=== PATIENT | male | born 1965 | race Caucasian/White ===

== ENCOUNTER → 2021-03-23 00:43 | Outpatient (CLI) | payer BC, SELFPAY ==
[2021-03-23 17:04] LABS: SARS-CoV-2 RNA PCR Negative
== END ==
PROVIDERS: PCP Internal Medicine; Visit Provider Surgery
DX: Z01.812 Encounter for preprocedural laboratory examination (principal); Z20.822 Contact with and (suspected) exposure to COVID-19
CPT/HCPCS: C9803; U0003; U0005

== ENCOUNTER 2021-03-23 09:28 | Outpatient (CLI) | payer BC, SELFPAY ==
[2021-03-23 10:48] LABS: Alanine Aminotransferase 23 U/L (4-50); Albumin Level 4.7 g/dL (3.5-5.1); Alkaline Phosphatase 73 U/L (38-126); Anion Gap 10 mmol/L (8-16); Aspartate Amino Transferase 28 U/L (17-59); Bilirubin,Total 1.1 mg/dL (0.2-1.3); Blood Urea Nitrogen 23 mg/dL (9-20); Calcium 9.6 mg/dL (8.4-10.2); Carbon Dioxide 26 mmol/L (22-30); Chloride 104 mmol/L (98-107); Cholesterol 210 mg/dL (0-200); Estimated Glomerular Filt Rate > 60; Glucose 107 mg/dL (65-110); HDL Direct 40 mg/dL; Potassium 4.3 mmol/L (3.4-5.0); Sodium 140 mmol/L (137-145); Triglycerides 153 mg/dL (<150)
[2021-03-23 11:00] LABS: LDL Cholesterol Direct 133 mg/dL
[2021-03-23 11:19] LABS: Prostate Specific Antigen 1.2 ng/mL (< OR = 4.0)
== END 2021-03-23 09:29 | disposition home or self-care (01) ==
LOC: ANHLAB 09:30
PROVIDERS: PCP Internal Medicine; Visit Provider Internal Medicine
DX: E78.5 Hyperlipidemia, unspecified (principal); I10 Essential (primary) hypertension; Z12.5 Encounter for screening for malignant neoplasm of prostate
CPT/HCPCS: 36415; 80053; 80061; 84153; G0103

== ENCOUNTER 2021-03-27 00:19 | Day surgery (SDC) | payer BC, SELFPAY ==
[2021-03-19 15:48] VITALS: BMI 33.3
[2021-03-27] MEDS: ACETAMINOPHEN 500 MG TABLET 1000 MG PO (07:35)
[2021-03-27] MEDS: LACTATED RINGERS 1,000 ML 30 ML IV CONT ×2 (07:40→10:34)
[2021-03-27] MEDS: KETOROLAC 15 MG/ML VIAL (*BKC) IV PUSH (07:43)
--- NOTE | 2021-03-27 07:52 | P.PNAN_ITS ---
Anes - Initial Pre Proc Eval Procedure: Operation Date: 03/27/21 09:00 Proposed Procedures p Right Inguinal Hernia Repair - Yahir Cespedes MD Date/Time: 03/27/21 07:52 Surgeon: Yahir Cespedes MD Pre Op Diagnosis: Rt Ing Hernia Patient Data Age: 55 Gender: M Height: 1.88 m Weight: 117.9 kg Allergies Allergy/AdvReac Type Severity Reaction Status Date / Time No Known Allergies Allergy Verified 03/27/21 07:05 Home Medications Medication Instructions Recorded Confirmed Type ibuprofen 200 mg capsule 200 mg PO Q6H PRN 02/22/21 03/19/21 History lisinopril 10 1 tablet PO DAILY 02/22/21 03/19/21 History mg-hydrochlorothiazide 12.5 mg tablet tamsulosin 0.4 mg capsule 0.4 mg PO DAILY 02/22/21 03/19/21 History Patient hx anesthesia problems: none Family hx anesthesia problems: none Results Review: All pre-operative results and documents have been reviewed as part of the pre-operative evaluation. [facility] Past Medical History Medical History History of kidney stones Surgical History Surgical History H/O left inguinal hernia repair H/O nephrolithotomy with removal of calculi H/O right knee surgery Hx of appendectomy Family History Family History Father , age 81 Lung cancer Hypertension Grandparent Pancreatic cancer Carcinoma of colon Social History Social History Smoking packs per day: 1 Smoking cigarettes per day: 20.0 Years smoked: 25 Smoking pack-years: 25.00 Smoking status: Former smoker Tobacco type: cigarettes Smoking end date: 11/06/12 Alcohol intake: current Alcohol use details: A COUPLE/MONTH Substance use: never Substance use type: does not use Living arrangements: with family 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 Informed Consent: The patient's anesthetic plan and its attendant risks and benefits were discussed with the patient/family/POA. Questions were solicited and answers provided to the satisfaction of the patient/family/POA.
[2021-03-27 08:29] VITALS: BP 142/85; PULSE 75; TEMP 36.6; O2SAT 99
--- NOTE | 2021-03-27 08:31 | WPDHPUPDATE1 ---
History and Physical Update Update Date/Time: 03/27/21 08:31 History and Physical has been reviewed, including an updated exam of the patient. There are NO changes in the patient's condition. Risks, benefits, and alternatives have been discussed and questions answered. Patient agrees to proceed with procedure.
[2021-03-27] MEDS: ceFAZolin 2 GM/D5W 50 ML 2 GM/50 ML BAG IVPB (08:50)
[2021-03-27] MEDS: LIDO 1%/EPINEPHRINE 1:100,000 50 ML VIAL 20 ML INFILTRATE (09:26)
--- NOTE | 2021-03-27 09:30 | SUR.OPER ---
Xaracoll 100 mg per Implant Pouch x [address] Cespedes.
--- NOTE | 2021-03-27 10:28 | W.PM.PROC2 ---
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 He was seen in the office and is taken to surgery now for repair. Findings Patient had a large indirect inguinal hernia but also a smaller direct inguinal hernia that was very lateral in the direct space, just medial to the inferior epigastric vessels. Two plugs of 6 cm Parietex were required, 1 for each defect. Xaracoll bupivacaine impregnated collagen was placed for postoperative anesthetic effect Description of Procedure Patient was taken to surgery and placed in a supine position. The right groin and genitalia were prepped and draped. The proposed incision was marked on the skin. Local was infiltrated into the skin and the deeper subcutaneous tissues. Incision was made and deepened through the subcutaneous. Crossing veins were cauterized and divided. Dissection was carried down through Yosi's fascia until we encountered the external oblique aponeurosis. We continued dissection exposing the external oblique aponeurosis as well as the external ring. Additional local was infiltrated deep to the external oblique aponeurosis in the area of the inguinal canal and its contents. The external oblique was then opened laterally and this was extended medially through the external ring. The leaves of the aponeurosis were freed from the underlying inguinal canal contents. The ilioinguinal nerve was left attached to the cord and was uninjured throughout the surgery. The cord was mobilized medially around a [place] drain and then this was continued until the cord was fully mobilized back to the internal ring. I dissected anteromedially in the cord. A large indirect hernia sac was found. I dissected the hernia sac from the cord. There was some lipomatous tissue in the cord which was dissected and excised. It was discarded. We continued to dissect the hernia sac from the spermatic cord eventually dissecting it back to a high dissection. It was dunked into the retroperitoneum. It was now evident that there was also a direct inguinal hernia just medial to the inferior epigastric vessels. This was a smaller hernia. This was dissected free from the inguinal canal floor. I scored through the transversalis fascia circumferentially with the cautery. This was done just above the neck of the hernia. This hernia dunked into the retroperitoneum as had the indirect hernia. To 6 cm Parietex circles were chosen. Each was folded deform a plug. Each plug was placed in 1 of the hernia defects. With the plugs in place, I then sutured the edges of the plugs to the transversalis fascia. The defect associated with the direct hernia was partially closed with a 3-0 Vicryl suture as well. 3-0 Vicryl had been used to suture the plugs to the transversalis fascia. This portion of the repair seemed to be quite satisfactory. I infiltrated additional local into the inguinal canal floor. We then cut the patch to the appropriate size and placed over the inguinal canal floor such that the lateral leave passed beyond the cord. I then laid the cord and ilioinguinal nerve over the patch. I put several pieces of Xaracoll all over the patch. I then closed the external oblique aponeurosis. Some additional pieces of Xaracoll were then placed over the external oblique aponeurosis. We then closed Yosi's fascia with interrupted 3 0 Vicryl suture. Additional Xaracoll pieces were laid under the skin in the subcutaneous. The skin was loosely approximated with 4-0 Vicryl subcuticular interrupted skin suture. Finally the skin was closed with a running 4-0 Monocryl ski
[2021-03-27 10:34] VITALS: BP 94/57; PULSE 75; RESP 12; O2SAT 94
[2021-03-27 11:00] VITALS: BP 108/61; PULSE 66; RESP 16; O2SAT 99
[2021-03-27 11:20] VITALS: BP 94/55; PULSE 65; RESP 16
--- NOTE | 2021-03-27 11:23 | SUR.PHASEII ---
DRESSED. WAITING FOR A RIDE.
== END 2021-03-27 11:44 | disposition home or self-care (01) ==
PROVIDERS: PCP Internal Medicine; Visit Provider Surgery
PROC: (CPT 49505; principal; 2021-03-27 09:00)
DX: K40.90 Unilateral inguinal hernia, without obstruction or gangrene, not specified as recurrent (principal); Z87.891 Personal history of nicotine dependence; E66.9 Obesity, unspecified; Z68.32 Body mass index [BMI] 32.0-32.9, adult
CPT/HCPCS: 49505; A9270; C1781; J0690; J1100; J1170; J1885; J2250; J2405; J2704; J3010; J7120

== ENCOUNTER 2021-06-15 01:40 | Emergency (ER) | payer BC, SELFPAY ==
--- NOTE | ~2021-06-15 | CT_ITS ---
EXAMINATION: CT soft tissue neck w con DATE: 06/15/2021 03:18 INDICATION: Neck swelling after dental procedure. TECHNIQUE: Computed tomography (CT) of the neck was performed with 75 mL Omnipaque-350 intravenous co ntrast. Automated exposure control and iterative reconstruction technique were employed. The dose-ye gth product was 658.18 mGy-cm. COMPARISON: None FINDINGS: There is plaque in the proximal internal carotid arteries with 0% stenosis relative to norm al distal artery lumen diameters. There is an increased number of normal-sized left submandibular lym ph nodes, likely reactive. There is mild mucosal thickening in right frontal sinus. The mastoid air c ells are normal. Tooth 18 demonstrates periapical lucencies. Tooth 17 is absent. There is fat strandi ng in left submandibular region, consistent with inflammation. No abscess. There is severe cervical s pondylosis. IMPRESSION: 1. Periapical lucencies involving tooth 18. Left submandibular inflammation. No abscess. Reviewed, dictated and finalized at location A. [facility]
[2021-06-15 01:41] VITALS: BP 152/72; PULSE 77; RESP 18; TEMP 36.6; O2SAT 100
--- NOTE | 2021-06-15 02:36 | PC.NURSE ---
Called lab to see why blood results are not received when blood was sent approx 20minutes ago. Baylee stated she is receiving it now.
--- NOTE | 2021-06-15 02:37 | ED.GENADULT ---
HPI - General Adult General Chief complaint: Unspecified Stated complaint: facial swelling Time Seen by Provider: 06/15/21 01:55 History of Present Illness HPI narrative: Patient is a 55-year-old gentleman who presents the emergency department with chief complaint of neck swelling and facial swelling patient reports he had a root canal done this week and has been on oral amoxicillin the patient noticed that yesterday he started having swelling in his tongue and on the left side of his cheek and into his submandibular space. Patient states that it is painful it hurts to swallow patient states that he has not had something like this happen to him before the patient denies fever denies chills denies shortness of breath denies trismus. Related Data Home Medications Medication Instructions Recorded Confirmed ibuprofen 200 mg capsule 200 mg PO Q6H PRN 02/22/21 04/29/21 lisinopril 10 1 tablet PO DAILY 02/22/21 04/29/21 mg-hydrochlorothiazide 12.5 mg tablet tamsulosin 0.4 mg capsule 0.4 mg PO DAILY 02/22/21 04/29/21 amoxicillin 06/15/21 tadalafil mg 06/15/21 Allergies Allergy/AdvReac Type Severity Reaction Status Date / Time No Known Allergies Allergy Verified 06/15/21 01:49 Review of Systems Review of Systems: A 10 system review of systems was completed on the patient and is negative except for what is stated in the HPI. Nursing and ancillary documentation was reviewed. [facility] Past Medical History Medical History History of kidney stones Surgical History Surgical History H/O left inguinal hernia repair Right inguinal repair 03/27/21 H/O nephrolithotomy with removal of calculi H/O right knee surgery Hx of appendectomy Family History Family History Father , age 81 Lung cancer Hypertension Grandparent Pancreatic cancer Carcinoma of colon Social History Social History Smoking packs per day: 1 Smoking cigarettes per day: 20.0 Years smoked: 25 Smoking pack-years: 25.00 Smoking status: Former smoker Tobacco type: cigarettes Smoking end date: 11/06/12 Alcohol intake: current Alcohol use details: A COUPLE/MONTH Substance use: never Substance use type: does not use 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 HEAD: Normocephalic, atraumatic. EYES: PERRLA and EOMI. ENT: Nares clear, no rhinorrhea or epistaxis. Mucous membranes moist. NECK: There is swelling present on the submandibular side of the left side of the neck. CHEST: Clear to auscultation. No respiratory distress. HEART: Regular rate and rhythm. No murmur heard. Normal peripheral pulses. ABDOMEN: Soft, nontender, nondistended, normal active bowel sounds. EXTREMITIES: Normal range of motion. No edema. SKIN: Warm, dry, no rash. NEURO: No focal deficits. Alert and oriented x3. PSYCH: Normal mood and affect. Course Course Emergency Course: CT scan shows evidence of odontogenic disease from the left mandibular molar. Vital Signs Vital signs: Vital Signs Temperature 36.6 C 06/15/21 01:41 Pulse Rate 77 06/15/21 01:41 Respiratory Rate 18 06/15/21 01:41 Blood Pressure 152/72 H 06/15/21 01:41 Pulse Oximetry 100 06/15/21 01:41 Temperature 36.6 C 06/15/21 01:41 Pulse Rate 67 06/15/21 03:19 Respiratory Rate 17 06/15/21 03:19 Blood Pressure 128/73 06/15/21 03:19 Pulse Oximetry 98 06/15/21 03:19 Medical Decision Making Vital Signs Vital Signs: Vital Signs Temperature 36.6 C 06/15/21 01:41 Pulse Rate 77 06/15/21 01:41 Respiratory Rate 18 06/15/21 01:41 Blood Pressure 152/72 H
[2021-06-15 02:43] LABS: Basophils Percent Auto 0.4 % (0.2-1.2); Eosinophils Absolute Auto 0.1 K/mm3 (0-0.3); Eosinophils Percent Auto 1.6 % (0-4.4); Hematocrit 40.5 % (42.0-52.0); Hemoglobin 13.7 g/dL (14.0-18.0); Immature Granulocyte Absolute 0.03 K/mm3 (0.00-0.031); Immature Granulocyte Percent A 0.4 % (0-0.5); Lymphocytes Absolute Auto 1.49 K/mm3 (0.9-3.2); Lymphocytes Percent Auto 18.4 % (18.3-44.2); Mean Corpuscular HGB Conc 33.8 g/dl (32-36); Mean Corpuscular Hemoglobin 29.8 pg (26-34); Mean Platelet Volume 11.5 fl (7.4-10.4); Monocytes Absolute Auto 1.2 K/mm3 (0.1-0.6); Monocytes Percent Auto 14.3 % (2.6-8.5); Neutrophils Absolute Auto 5.3 K/mm3 (1.3-6.7); Neutrophils Percent Auto 64.9 % (45.5-73.1); Platelet Count Result 172 k/mm3 (150-375); Red Cell Distribution Width 13.2 % (11.5-14.5); White Blood Count 8.1 K/mm3 (4.5-10.0)
[2021-06-15 02:51] LABS: Alanine Aminotransferase 25 U/L (4-50); Albumin Level 4.3 g/dL (3.5-5.1); Alkaline Phosphatase 78 U/L (38-126); Anion Gap 5 mmol/L (8-16); Aspartate Amino Transferase 30 U/L (17-59); Bilirubin,Total 0.9 mg/dL (0.2-1.3); Blood Urea Nitrogen 20 mg/dL (9-20); Calcium 9.4 mg/dL (8.4-10.2); Carbon Dioxide 27 mmol/L (22-30); Chloride 104 mmol/L (98-107); Estimated CRCL calculation 105 ml/min; Estimated Glomerular Filt Rate > 60; Glucose 109 mg/dL (65-110); Potassium 3.7 mmol/L (3.4-5.0); Sodium 136 mmol/L (137-145)
[2021-06-15 02:52] LABS: Lactic Acid Reflex 0.7 mmol/L (0.7-2.1)
--- NOTE | 2021-06-15 03:10 | PC.NURSE ---
Patient in CT.
[2021-06-15 03:19] VITALS: BP 128/73; PULSE 67; RESP 17; O2SAT 98
[2021-06-15] MEDS: CLINDAMYCIN 600 MG/D5W 50 ML 600 MG/50 ML PIGGYBACK 100 MG IVPB (03:42)
== END 2021-06-15 04:10 | disposition home or self-care (01) ==
PROVIDERS: Emergency Provider Emergency Medicine; PCP Internal Medicine
DX: K12.2 Cellulitis and abscess of mouth (principal); Z87.442 Personal history of urinary calculi; Z87.891 Personal history of nicotine dependence; Z98.818 Other dental procedure status
CPT/HCPCS: 36415; 70491; 80053; 83605; 85025; 87040; 96365; 99284; Q9967

== ENCOUNTER 2021-11-26 14:53 | Outpatient (CLI) | payer BC, SELFPAY ==
--- NOTE | ~2021-11-26 | XR_ITS ---
EXAM: XR knee RT min 4V DATE: 11/26/2021 15:18 HISTORY: pain and swelling to right knee x 2 months, no injury . COMPARISON: None available. FINDINGS: Normal mineralization. No fracture or dislocation. No lytic or blastic lesion. Severe medi al joint space narrowing. Moderate tricompartmental osteophytosis. Small volume joint fluid. No erosi on or periosteal change. Soft tissues within normal limits. IMPRESSION: Tricompartmental right knee osteoarthritis, severe in the medial compartment. Reviewed, dictated and finalized at location K. IMPRESSION: Tricompartmental right knee osteoarthritis, severe in the medial co mpartment.
== END 2021-11-26 14:54 | disposition home or self-care (01) ==
PROVIDERS: PCP Internal Medicine; Visit Provider Internal Medicine
DX: M25.561 Pain in right knee (principal); M17.11 Unilateral primary osteoarthritis, right knee
CPT/HCPCS: 73564

== ENCOUNTER 2022-03-31 14:31 | Outpatient (CLI) | payer BC, SELFPAY ==
--- NOTE | 2022-03-31 14:58 | ECG_ITS ---
Measurements Intervals [place] Rate: 82 P: 36 WV: 160 QRS: -6 QRSD: 102 T: 10 QT: 365 QTc: 428 Interpretive Statements SINUS RHYTHM NORMAL ECG NO PREVIOUS ECG AVAILABLE FOR COMPARISON Electronically Signed On 03-31-2022 16:28:17 CDT by Low Sen M.D.
[2022-03-31 15:01] LABS: Hematocrit 43.3 % (42.0-52.0); Hemoglobin 14.7 g/dL (14.0-18.0)
[2022-03-31 15:12] LABS: Albumin Level 4.7 g/dL (3.5-5.1); Estimated Glomerular Filt Rate 57; Glucose 100 mg/dL (65-110)
[2022-03-31 15:27] LABS: Hemoglobin A1C 5.6 % (<5.7)
[2022-03-31 16:06] LABS: Urine Cotinine NEGATIVE
== END 2022-03-31 14:32 | disposition home or self-care (01) ==
LOC: ANHLAB 14:33
PROVIDERS: PCP Internal Medicine; Visit Provider Orthopaedic Surgery
DX: I10 Essential (primary) hypertension (principal); Z87.442 Personal history of urinary calculi; E78.5 Hyperlipidemia, unspecified; Z92.29 Personal history of other drug therapy; M17.11 Unilateral primary osteoarthritis, right knee; Z92.89 Personal history of other medical treatment
CPT/HCPCS: 80307; 82040; 82565; 82947; 83036; 85014; 85018; 93005

== ENCOUNTER 2022-05-28 11:31 | Outpatient (CLI) | payer BC, SELFPAY ==
[2022-05-28 13:38] LABS: Basophils Absolute Auto 0.1 K/mm3 (0.0-0.1); Basophils Percent Auto 0.7 % (0.2-1.2); Eosinophils Absolute Auto 0.1 K/mm3 (0-0.3); Eosinophils Percent Auto 0.7 % (0-4.4); Hematocrit 47.7 % (42.0-52.0); Immature Granulocyte Absolute 0.05 K/mm3 (0.00-0.031); Immature Granulocyte Percent A 0.6 % (0-0.5); Lymphocytes Absolute Auto 1.61 K/mm3 (0.9-3.2); Lymphocytes Percent Auto 18.5 % (18.3-44.2); Mean Corpuscular HGB Conc 33.5 g/dl (32-36); Mean Corpuscular Hemoglobin 29.7 pg (26-34); Mean Corpuscular Volume 88.5 fl (80-100); Mean Platelet Volume 11.3 fl (7.4-10.4); Monocytes Absolute Auto 0.9 K/mm3 (0.1-0.6); Monocytes Percent Auto 10.8 % (2.6-8.5); Neutrophils Percent Auto 68.7 % (45.5-73.1); Platelet Count Result 227 k/mm3 (150-375); Red Blood Count 5.39 M/mm3 (4.6-6.20); Red Cell Distribution Width 12.6 % (11.5-14.5); White Blood Count 8.7 K/mm3 (4.5-10.0)
[2022-05-28 13:50] LABS: Albumin Level 4.9 g/dL (3.5-5.1)
[2022-05-28 13:55] LABS: Urine Cotinine NEGATIVE
[2022-05-28 21:30] LABS: Anion Gap 6 mmol/L (8-16); Blood Urea Nitrogen 28 mg/dL (9-20); Calcium 9.6 mg/dL (8.4-10.2); Carbon Dioxide 28 mmol/L (22-30); Chloride 104 mmol/L (98-107); Estimated Glomerular Filt Rate > 60; Glucose 89 mg/dL (65-110); Potassium 3.9 mmol/L (3.4-5.0); Sodium 138 mmol/L (137-145)
== END 2022-05-28 11:32 | disposition home or self-care (01) ==
PROVIDERS: Anesthesiology; PCP Internal Medicine; Visit Provider Orthopaedic Surgery
DX: M17.11 Unilateral primary osteoarthritis, right knee (principal); Z79.899 Other long term (current) drug therapy
CPT/HCPCS: 36415; 80048; 80307; 82040; 85025; 87081

== ENCOUNTER 2022-06-19 00:04 | Day surgery (SDC) | payer BC, SELFPAY ==
--- NOTE | 2022-05-28 12:05 | PC.NURSE ---
PRE-OP INSTRUCTIONS, PLEASE READ CAREFULLY Report to the Outpatient Waiting Room, entrance under the green pavilion located off [facility], at time _0600_ on date _06/19/22_. Planned Procedure Time: _0730_. PACK A SMALL OVERNIGHT BAG AND LEAVE IN THE CAR ALONG WITH YOUR WALKER Time changes happen often and if your time is changed the preop area will call you the afternoon before. - You and your visitor will be asked to self-screen and do not enter if you have any COVID symptoms. - Only one visitor is requested with a max of two and NO children visitors are allowed at this time. - The patient visitor may be requested to leave or wait in car when not with patient due to distancing restrictions. - A mask is required within the hospital. -VISITING HOURS 8AM-8PM Patients may have clear liquids (water, carbonated beverages, clear teas, apple juice) until 3 hours prior to surgery (0430 AM) with a maximum of 20 ounces. - No food from midnight until time of surgery Take the following medications with a SIP of water the morning of surgery: _TYLENOL IF NEEDED_ Medications to discontinue per DR. CARR -_IBUPROFEN, ALEVE 7 DAYS PRIOR TO SURGERY, Date to take last dose 06/11/22_ Please no make-up, nail kiswahili, hairspray, perfume, deodorant, or body powder the day of surgery. No jewelry (including any body piercings) or valuables the day of surgery, leave them at home. Please take a shower or bath the night before, or the morning of, surgery with an antibacterial soap. Wear comfortable, loose fitting clothing. - Jewelry must be removed prior to entering the operating room. Rings and piercings that are not removed may be cut off. - The hospital will not accept responsibility for valuables. - Please leave all valuables, including medications, at home the day of surgery. If you are going home after surgery, a licensed mixer driver must drive you home. - NO public transportation without another adult if you receive anesthesia. - We recommend that an adult stay with you for 24 hours following discharge. - We also recommend that you do not drive, make important decision, drink alcoholic beverages, or take any drugs that were not prescribed by your health care provider for at least 24 hours after your discharge time. Follow any additional instructions given to you from your surgeon. If you or anyone in your household have experienced Covid symptoms in the past week, please notify your surgeon or the nurse liaison at the phone number below for possible testing. Instructions given to __PATIENT__and asked if any additional questions and then verbalized understanding. Patient advised to call surgeon office or pre surgery nurse liaison [phone] if any additional questions.
[2022-05-28 12:22] VITALS: BP 124/82; PULSE 72; RESP 20; TEMP 36.5; O2SAT 99; BMI 33.5
--- NOTE | 2022-06-18 09:32 | WPDANESEPPF ---
Anes - Initial Pre Proc Eval Procedure: Operation Date: 06/19/22 07:30 Proposed Procedures p Right Total Knee Arthroplasty - Db Sesay MD Date/Time: 06/18/22 09:32 Surgeon: Db Sesay MD Pre Op Diagnosis: primary OA Right knee Patient Data Age: 56 Gender: M Height: 1.88 m Weight: 118.7 kg Last Vital Signs Temp 36.5 C 05/28/22 12: Pulse 72 05/28/22 12:22 Resp 20 05/28/22 12:22 BP 124/82 05/28/22 12:22 Pulse Ox 99 05/28/22 12:22 O2 Del Method Room Air 05/28/22 12:22 Allergies Allergy/AdvReac Type Severity Reaction Status Date / Time No Known Allergies Allergy Verified 06/19/22 06:10 Home Medications Medication Instructions Recorded Confirmed Type lisinopril 10 1 tablet PO DAILY 02/22/21 06/19/22 History mg-hydrochlorothiazide 12.5 mg tablet acetaminophen 325 mg capsule 650 mg PO Q6H PRN Pain 02/27/22 06/19/22 History (Tylenol) ibuprofen 200 mg capsule 200 mg PO Q6H PRN Pain 02/27/22 06/19/22 History naproxen sodium 220 mg tablet 220 mg PO BID PRN Pain 05/28/22 06/19/22 History (Aleve) tadalafil 10 mg tablet 10 mg PRN PRN Erectile Dysfunction 05/28/22 06/19/22 History Patient hx anesthesia problems: none Family hx anesthesia problems: none Results Review: All pre-operative results and documents have been reviewed as part of the pre-operative evaluation. [facility] Past Medical History Medical History (Updated 06/18/22 @ 09:40 by Fortunato Armenta DO) Erectile dysfunction History of kidney stones History of stress test (~2014) HTN (hypertension) Hyperlipemia Personal history of other drug therapy Surgical History Surgical History (Updated 03/26/22 @ 14:54 by Rachel Yen MA) H/O left inguinal hernia repair Right inguinal repair 03/27/21 H/O nephrolithotomy with removal of calculi H/O right knee surgery x2 ppm Hx of appendectomy Family History Family History Father , age 81 Lung cancer Hypertension Grandparent Pancreatic cancer Carcinoma of colon Social History Social History (Updated 06/11/22 @ 15:26 by Sharon Bhandari) Smoking packs per day: 1 Smoking cigarettes per day: 20.0 Years smoked: 25 Smoking pack-years: 25.00 Smoking status: Former smoker Tobacco type: cigarettes Second hand tobacco smoke exposure: No Smoking end date: 11/06/12 Additional smoking assessment comments: PT DENIES ALL FORMS OF TOBACCO USE Alcohol intake: current Alcohol use details: RARELY 1/MONTH Substance use: never Substance use type: does not use Lack of Transportation: No Lack of Food: Never True Current Housing: I Have Housing Concerned About Future Housing: No Difficulty Paying Gas/Electric Bills: No Difficulty Paying for Meds: No Currently Unemployed: No Education: Associate Degree Difficulty w/ Childcare or Family Care: No Living arrangements: with family 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 Informed Consent: The patient's anesthetic plan and its attendant risks and benefits were discussed with the patient/family/POA. Questions were solicited and answers provided to the satisfaction of the patient/family/POA.
[2022-06-19] VITALS (10 sets, daily range): BP systolic 106–131; BP diastolic 60–86; PULSE 66–78; RESP 11–18; TEMP 36.3–36.9; O2SAT 96–100
--- NOTE | ~2022-06-19 | XR_ITS ---
EXAMINATION: XR knee RT 2V DATE: 06/19/2022 09:56 INDICATION: Postoperative evaluation following right total knee arthroplasty. TECHNIQUE: Anteroposterior and lateral views of the right knee were obtained. COMPARISON: 06/11/2022 FINDINGS: Right total knee arthroplasty with patellar resurfacing appears well seated and in near anatomic alig nment. No fractures identified. Expected postoperative subcutaneous and intra-articular gas. IMPRESSION: 1. Right total knee arthroplasty, negative for postoperative purposes. Reviewed, dictated and finalized at location A. REMENT PLAN COUNSELOR
[2022-06-19] MEDS: LACTATED RINGERS 1,000 ML 30 ML IV CONT ×2 (06:30→09:45)
--- NOTE | 2022-06-19 06:32 | WPDANESPNB ---
Anes - Peripheral Nerve Block Date/Time: 06/19/22 06:32 I have discussed with the patient/family/POA the placement of a peripheral nerve block for post-operative pain management, including associated risks, benefits, complications, and side effects. Alternative methods of post-operative analgesia were detailed. Questions were solicited and answers provided to the satisfaction of the patient/family/POA. Time-Out: A pre-procedural Time-Out was completed immediately before starting the procedure and confirmed: Patient Identification, Site, Procedure, Patient Position and the Availability of Requisite Equipment. Clinical Indications: Acute post-operative pain management requested by the operative surgeon. Nerve Block Insertion Note Anes-nerve block: adductor canal right Patient position: supine Skin prep: chlorhexidine Needle: 22 gauge, stimulating, insulated echogenic needle. Needle length: 80 mm Technique: ultrasound Injectate: bupivacaine 0.5% with epi 5 mcg/ml (30cc - no epi) Observations: tolerated well Complications: none Procedure start time:: 714 Procedure end time:: 718
[2022-06-19] MEDS: TRANEXAMIC ACID 1,000MG/ISO100 1,000 MG/100 ML BAG 200 MG IVPB (06:58)
--- NOTE | 2022-06-19 07:12 | WPDHPUPDATE1 ---
History and Physical Update Update Date/Time: 06/19/22 07:12 History and Physical has been reviewed, including an updated exam of the patient. There are NO changes in the patient's condition. Risks, benefits, and alternatives have been discussed and questions answered. Patient agrees to proceed with procedure.
[2022-06-19] MEDS: ceFAZolin 2 GM/D5W 50 ML 2 GM/50 ML BAG IVPB (07:29)
[2022-06-19] MEDS: GENTAMICIN BONE CEMENT REFOBACIN 1 EACH TOPICAL (08:13)
[2022-06-19] MEDS: TRANEXAMIC ACID 1,000 MG/10 ML AMPUL 1000 MG TOPICAL (09:18)
--- NOTE | 2022-06-19 09:56 | W.PM.PROC2 ---
Procedure Note - Detailed Date of Procedure 06/19/22 Pre-op Diagnosis primary OA Right knee Post-op Diagnosis Same Procedure Performed Total knee arthroplasty, right knee Surgeon Db Sesay MD Mobile Security Specialist Taniya Khan PA-C Anesthesia General and Regional (subsartorial block) Findings Severe varus arthritis. Mild tricompartmental changes. Mild medial release required. Minimal posterior osteophyte. 5 degree valgus femoral cut. 3 degree external rotation. 8 mm distal femur. Slight PCL released from the tibia. Very good bone quality. Description of Procedure The patient was brought to the operating room. A general anesthetic was administered. The leg was prepped and draped in the usual sterile fashion. The limb was elevated and the tourniquet inflated to 300 mmHg. A longitudinal incision was created along the medial border of the patella and patellar tendon, and a trivector approach to the knee was performed. A mild medial release was taken. The knee was then flexed. The osteophytes were carefully removed. The intramedullary guide was placed in the femoral canal. The distal femoral resection was then taken with the oscillating saw. The collateral ligaments were carefully protected. The tibia was carefully exposed. The jig was applied, and the proximal tibia was resected according to preoperative plan. The knee was balanced in extension. Appropriate releases were taken where needed. The anterior cruciate ligament and meniscal remnants were removed. The posterior cruciate ligament was preserved. The patella was measured. Patellar resection was carried out with the oscillating saw. The lug holes drilled. The femur was sized and rotation assessed using a combination of gap balancing, posterior referencing, and the AP axis. The 4 in 1 cutting block was used to finish the femoral cuts after equal gaps were assured. The osteophytes were carefully removed from the back of the knee. The knee was copiously irrigated with antibiotic solution periodically throughout the procedure. The meniscal remnants were removed. The spacer block was used to confirm equal flexion and extension gaps. No further releases were needed. The tibia was sized and broached. The bony surfaces were prepared for cementing with pulsatile lavage. The real tibia was cemented into position. The femur was press-fit. The patella was press-fit. Excess cement was carefully removed. Patellar tracking was carefully assessed. Dilute sterile Betadine soak performed for three minutes. Copious irrigation then performed. The wound was closed with #1 Vicryl suture, #2, 2-0, and 3-0 barbed suture, followed by Steri-Strips. A sterile bulky dressing was applied. Meticulous hemostasis was maintained throughout the procedure, and the bipolar cautery device was used. The pain relieving mixture was injected into the periarticular tissues during the procedure. There were no complications. The patient was extubated and brought to the recovery room in stable condition after the application of sterile dressing with Madhu bandage. Implants Agent Partnerathlon knee system, low profile cemented tibia size 7, press-fit cruciate retaining femoral component size 7 ,and an 9 mm cruciate [retaining] X3 cross-linked polyethylene insert. 38mm asymmetric metal backed tritanium patella component. Estimated Blood Loss 100 Drains No Pathology None sent Complications No immediate complications Condition Stable Disposition PACU [facility] Billing Surgery - Charge Forward: Surgery Billing
[2022-06-19] MEDS: oxyCODONE HCL (*CRX) 5 MG TAB IR PO (11:24)
== END 2022-06-19 12:50 | disposition home or self-care (01) ==
PROVIDERS: PCP Internal Medicine; Visit Provider Orthopaedic Surgery
PROC: (CPT 27447; principal; 2022-06-19 07:30)
DX: M17.11 Unilateral primary osteoarthritis, right knee (principal); G89.18 Other acute postprocedural pain; I10 Essential (primary) hypertension; E78.5 Hyperlipidemia, unspecified; Z87.891 Personal history of nicotine dependence; E66.9 Obesity, unspecified; Z68.33 Body mass index [BMI] 33.0-33.9, adult
CPT/HCPCS: 27447; 64447; 36415; 73560; 86850; 86900; 86901; 97110; 97161; 97165; 97535; A9270; C1713; C1776; J0171; J0690; J1100; J1885; J2250; J2270; J2405; J2704; J2795; J3010; J7120

== ENCOUNTER 2023-06-19 07:37 | Outpatient (CLI) | payer BC, SELFPAY ==
--- NOTE | ~2023-06-19 | XR_ITS ---
CORRECTED REPORT corrected exam title JMG 06/19/23 This report was recreated on 06/19/23. Original report was RNET MARKETING EXECUTIVE XR knee RT 3V DATE: 06/19/2023 07:48 INDICATION: Knee replacement surgery one year ago TECHNIQUE: 3 views COMPARISON: 11/12/2022 right knee FINDINGS: Status post right total knee arthroplasty. There is a small suprapatellar knee joint effusion. No fracture or dislocation, periosteal reaction or bone destruction. IMPRESSION: Small knee joint effusion Status post right total knee arthroplasty Reviewed, dictated and finalized at Location A. Reviewed, dictated and finalized at location B. RNET MARKETING EXECUTIVE MTDD
== END 2023-06-19 07:38 | disposition home or self-care (01) ==
PROVIDERS: PCP Internal Medicine; Visit Provider Orthopaedic Surgery
DX: Z47.1 Aftercare following joint replacement surgery (principal); M25.461 Effusion, right knee
CPT/HCPCS: 73562

== ENCOUNTER 2023-07-13 00:27 | Day surgery (SDC) | payer BC, SELFPAY ==
[2023-06-16 11:50] VITALS: BMI 34.0
--- NOTE | 2023-07-10 08:32 | SUR.PREOP ---
Patient called regarding upcoming procedure. Reviewed preop instructions, appointment times, and procedure prep.
--- NOTE | 2023-07-10 14:50 | PM.HPGS ---
History of Present Illness History of Present Illness Consent: Risks, benefits, and alternatives have been discussed and questions answered. Patient agrees to proceed with procedure. Chief complaint: family hx colon ca Narrative: Romero Hernandez is a 58 year old male Referred for colon cancer screening. Although his maternal grandmother had colon cancer, he is at average risk. Review of Systems Review of Systems: All systems reviewed & are unremarkable except as noted in HPI and below PMFSH Past Medical History Medical History Erectile dysfunction History of kidney stones History of stress test (~2014) HTN (hypertension) Hyperlipemia Personal history of other drug therapy Surgical History Surgical History H/O left inguinal hernia repair Right inguinal repair 03/27/21 H/O nephrolithotomy with removal of calculi H/O right knee surgery x2 pmm History of total right knee replacement (~06/19/22) Hx of appendectomy Family History Family History Father , age 81 Lung cancer Hypertension Grandparent Pancreatic cancer Carcinoma of colon Social History Social History Smoking packs per day: 1 Smoking cigarettes per day: 20.0 Years smoked: 20 Smoking pack-years: 20.00 Smoking status: Former smoker Tobacco type: cigarettes Second hand tobacco smoke exposure: No Smoking end date: 11/06/12 Additional smoking assessment comments: PT DENIES ALL FORMS OF TOBACCO USE Alcohol intake: never Alcohol use details: DRINKS VERY RARELY Substance use: never Substance use type: does not use Do You Feel Safe in your Home?: Yes Lack of Transportation: No Lack of Food: Never True Current Housing: I Have Housing Concerned About Future Housing: No Difficulty Paying Gas/Electric Bills: No Difficulty Paying for Meds: No Currently Unemployed: No Education: Associate Degree Difficulty w/ Childcare or Family Care: No Living arrangements: with family Occupation/Education: occupation 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 Spiritual care concerns: No Meds Home Medications and Allergies Home Medications Medication Instructions Recorded Confirmed Type lisinopril 10 1 tablet PO DAILY 02/22/21 06/19/23 History mg-hydrochlorothiazide 12.5 mg tablet tadalafil 10 mg tablet 10 mg PRN PRN Erectile Dysfunction 05/28/22 06/19/23 History Allergies Allergy/AdvReac Type Severity Reaction Status Date / Time No Known Allergies Allergy Verified 07/13/23 09:56 Exam Const: General: alert Orientation/consciousness: patient oriented x3 Resp: Auscultation: clear to auscultation bilaterally Cardio: Rhythm: regular rhythm GI: GI Palp: Yes Soft to palpation and No Tenderness to palpation present (GI) Neuro: General: patient oriented x3 Assessment and Plan Assessment and plan (1) Colon cancer screening: Code(s): Z12.11 - Encounter for screening for malignant neoplasm of colon Status: Acute Assessment and Plan: Colonoscopy with possible biopsy or polypectomy or cautery or injection of substances.
[2023-07-13 10:00] VITALS: BP 137/90; PULSE 76; RESP 18; TEMP 36.6; O2SAT 97
[2023-07-13] MEDS: LACTATED RINGERS 1,000 ML 150 ML IV CONT (10:08)
--- NOTE | 2023-07-13 10:10 | WPDANESEPPF ---
Anes - Initial Pre Proc Eval Procedure: Operation Date: 07/13/23 11:00 Proposed Procedures p Colonoscopy - Paul Morelos MD Date/Time: 07/13/23 10:10 Surgeon: Paul Morelos MD Pre Op Diagnosis: family hx colon ca Patient Data Age: 58 Gender: M Height: 1.88 m Weight: 120.5 kg Last Vital Signs Temp 97.9 F 07/13/23 10:00 Pulse 76 07/13/23 10:00 Resp 18 07/13/23 10:00 BP 137/90 07/13/23 10:00 Pulse Ox 97 07/13/23 10:00 O2 Del Method Room Air 07/13/23 10:00 Allergies Allergy/AdvReac Type Severity Reaction Status Date / Time No Known Allergies Allergy Verified 07/13/23 09:56 Home Medications Medication Instructions Recorded Confirmed Type lisinopril 10 1 tablet PO DAILY 02/22/21 06/19/23 History mg-hydrochlorothiazide 12.5 mg tablet tadalafil 10 mg tablet 10 mg PRN PRN Erectile Dysfunction 05/28/22 06/19/23 History Patient hx anesthesia problems: none Family hx anesthesia problems: none Results Review: All pre-operative results and documents have been reviewed as part of the pre-operative evaluation. [facility] Past Medical History Medical History Erectile dysfunction History of kidney stones History of stress test (~2014) HTN (hypertension) Hyperlipemia Personal history of other drug therapy Surgical History Surgical History H/O left inguinal hernia repair Right inguinal repair 03/27/21 H/O nephrolithotomy with removal of calculi H/O right knee surgery x2 pmm History of total right knee replacement (~06/19/22) Hx of appendectomy Family History Family History Father , age 81 Lung cancer Hypertension Grandparent Pancreatic cancer Carcinoma of colon Social History Social History Smoking packs per day: 1 Smoking cigarettes per day: 20.0 Years smoked: 20 Smoking pack-years: 20.00 Smoking status: Former smoker Tobacco type: cigarettes Second hand tobacco smoke exposure: No Smoking end date: 11/06/12 Additional smoking assessment comments: PT DENIES ALL FORMS OF TOBACCO USE Alcohol intake: never Alcohol use details: DRINKS VERY RARELY Substance use: never Substance use type: does not use Do You Feel Safe in your Home?: Yes Lack of Transportation: No Lack of Food: Never True Current Housing: I Have Housing Concerned About Future Housing: No Difficulty Paying Gas/Electric Bills: No Difficulty Paying for Meds: No Currently Unemployed: No Education: Associate Degree Difficulty w/ Childcare or Family Care: No Living arrangements: with family Occupation/Education: occupation 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 Informed Consent: The patient's anesthetic plan and its attendant risks and benefits were discussed with the patient/family/POA. Questions were solicited and answers provided to the satisfaction of the patient/family/POA.
[2023-07-13] MEDS: SIMETHICONE ORAL SUSPENSION 20 MG/0.3 ML 30 ML BOTTLE 0.6 ML IRRIGATION (10:45)
[2023-07-13 10:59] VITALS: BP 112/75; PULSE 78; RESP 17; O2SAT 97
[2023-07-13 11:07] VITALS: BP 114/80; PULSE 69; RESP 28; O2SAT 97
[2023-07-13 11:10] VITALS: BP 122/80; PULSE 72; RESP 28; O2SAT 98
[2023-07-13 11:20] VITALS: BP 122/80; PULSE 73; RESP 24; O2SAT 96
== END 2023-07-13 11:24 | disposition home or self-care (01) ==
PROVIDERS: PCP Internal Medicine; Visit Provider Internal Medicine Gastroenterology
PROC: 0DJD8ZZ Inspection of Lower Intestinal Tract, Via Natural or Artificial Opening Endoscopic (ICD-10-PCS; CPT 45378; principal; 2023-07-13 11:00)
DX: Z12.11 Encounter for screening for malignant neoplasm of colon (principal); K64.8 Other hemorrhoids; K57.30 Diverticulosis of large intestine without perforation or abscess without bleeding; I10 Essential (primary) hypertension; E78.5 Hyperlipidemia, unspecified; N52.9 Male erectile dysfunction, unspecified; E66.9 Obesity, unspecified; Z68.34 Body mass index [BMI] 34.0-34.9, adult; Z98.890 Other specified postprocedural states; Z87.891 Personal history of nicotine dependence; Z80.0 Family history of malignant neoplasm of digestive organs; Z80.1 Family history of malignant neoplasm of trachea, bronchus and lung
CPT/HCPCS: 45378; J7120

== ENCOUNTER 2023-07-16 10:22 | Emergency (ER) | payer BC, SELFPAY ==
[2023-07-16 10:37] VITALS: BP 136/91; PULSE 81; RESP 18; TEMP 36.5; O2SAT 96
--- NOTE | 2023-07-16 10:37 | ED.EYEPROB ---
HPI - Eye Problem General Chief complaint: Eye Problems Stated complaint: bilateral eye irritation Time Seen by Provider: 07/16/23 10:40 Source: patient, RN notes reviewed and old records reviewed Mode of arrival: ambulatory Limitations: no limitations History of Present Illness HPI Narrative: 58-year-old male presents to the [facility] with right eye irritation since yesterday. Patient states when he got home from work felt like something was ?scratching his eye. Has inflammation to the upper right eyelid Used some leftover gentamicin drops that his gave him to use States after he put 1 drop in the eye felt better. No blurry vision or change in vision. Currently no pain Related Data Home Medications Medication Instructions Recorded Confirmed lisinopril 10 1 tablet PO DAILY 02/22/21 07/16/23 mg-hydrochlorothiazide 12.5 mg tablet tadalafil 10 mg tablet 10 mg PRN PRN Erectile Dysfunction 05/28/22 07/16/23 Allergies Allergy/AdvReac Type Severity Reaction Status Date / Time No Known Allergies Allergy Verified 07/16/23 10:43 Review of Systems Review of Systems: All systems reviewed & are unremarkable except as noted in HPI and below Constitutional: Constitutional: Reports no additional constitutional complaints Eyes: Eyes: Reports as per HPI ENT: Reports system reviewed and no additional complaints, except as documented Cardiovascular: Cardiovascular: Reports no additional cardiovascular complaints, Denies chest pain and Denies dyspnea Respiratory: Respiratory: Reports no additional respiratory complaints, Denies chest congestion, Denies cough and Denies dyspnea Gastrointestinal: Gastrointestinal: Reports no additional gastrointestinal complaints, Denies abdominal pain, Denies nausea and Denies vomiting Musculoskeletal: Musculoskeletal: Reports no additional musculoskeletal complaints Integumentary/Breasts: Skin/Breast: Reports system reviewed and no additional complaints, except as docu Neurologic: Reports system reviewed and no additional complaints, except as documented Psychiatric: Psychiatric: Reports no additional psychiatric complaints Allergic/Immunologic: Allergic/Immunologic: Reports no additional allergic/immunologic complaints [facility] Past Medical History Medical History Erectile dysfunction History of kidney stones History of stress test (~2014) HTN (hypertension) Hyperlipemia Personal history of other drug therapy Surgical History Surgical History H/O left inguinal hernia repair Right inguinal repair 03/27/21 H/O nephrolithotomy with removal of calculi H/O right knee surgery x2 pmm History of total right knee replacement (~06/19/22) Hx of appendectomy Family History Family History Father , age 81 Lung cancer Hypertension Grandparent Pancreatic cancer Carcinoma of colon Social History Social History Smoking packs per day: 1 Smoking cigarettes per day: 20.0 Years smoked: 20 Smoking pack-years: 20.00 Smoking status: Former smoker Tobacco type: cigarettes Second hand tobacco smoke exposure: No Smoking end date: 11/06/12 Additional smoking assessment comments: PT DENIES ALL FORMS OF TOBACCO USE Alcohol intake: never Alcohol use details: DRINKS VERY RARELY Substance use: never Substance use type: does not use Do You Feel Safe in your Home?: Yes Lack of Transportation: No Lack of Food: Never True Current Housing: I Have Housing Concerned About Future Housing: No Difficulty Paying Gas/Electric Bills: No Difficulty Paying for Meds: No Currently Unemployed: No Education: Associate Degree Difficulty w/ Childcare or Family Care: No Living arrangements: with family Occupation/Education: occupation
[2023-07-16] MEDS: DACRIOSE EYE IRRIGATION 118 ML BOTTLE RIGHT EYE (10:56)
[2023-07-16] MEDS: TETRACAINE HCL 0.5% OPHTH SOLN 4 ML BTL 1 DROP EACH EYE (10:56)
[2023-07-16] MEDS: FLUORESCEIN SOD 1 MG/STRIP EACH EYE (10:56)
== END 2023-07-16 11:13 | disposition home or self-care (01) ==
PROVIDERS: Emergency Provider Nurse Practitioner; PCP Internal Medicine
DX: H01.001 Unspecified blepharitis right upper eyelid (principal); Z87.891 Personal history of nicotine dependence; I10 Essential (primary) hypertension; E78.5 Hyperlipidemia, unspecified; Z96.651 Presence of right artificial knee joint
CPT/HCPCS: 99213; A9270; G0463